=== PATIENT | female | born 1960 | race Hispanic/Latino ===

== ENCOUNTER → 2019-09-27 | Outpatient (CLI) | payer OTHER | END | disposition home or self-care (01) | LOC: OIH 13:31 | PROVIDERS: ATTEND Internal Medicine Cardiovascular Disease | DX: Z13.6 Encounter for screening for cardiovascular disorders (principal) | CPT/HCPCS: 75571 ==

== ENCOUNTER 2021-10-01 12:30 | Emergency (ER) | payer MEDICARE, OTHER ==
[~2021-10-01] VITALS: Ht 152.4 cm; Wt 137.0 kg
[2021-10-01 13:15] LABS: BASOPHILS % (AUTO) 0.5 % (0.0-5.0); EOSINOPHILS % (AUTO) 2.3 % (0.0-8.0); HEMATOCRIT 32.8 % (36-48); LYMPHOCYTES % (AUTO) 27.7 % (21.0-51.0); MEAN CORPUSCULAR HEMOGLOBIN 27.2 pg (27.0-33.0); MEAN CORPUSCULAR HGB CONC 31.4 g/dL (32.0-36.0); MEAN CORPUSCULAR VOLUME 86.8 fL (79-99); MONOCYTES % (AUTO) 8.3 % (3.0-13.0); NEUTROPHILS % (AUTO) 60.5 % (40.0-77.0); PLATELET COUNT (AUTO) 279 K/uL (130-400); RED BLOOD CELL COUNT(AUTO) 3.78 MIL/uL (4.00-5.50); RED CELL DISTRIBUTION WIDTH 14.5 % (11.0-15.5); WHITE BLOOD COUNT (AUTO) 8.8 K/uL (4.8-10.8)
[2021-10-01 13:25] LABS: CREATININE 1.6 mg/dL (0.5-1.5); POTASSIUM 5.5 mmol/L (3.5-5.1)
[2021-10-01 13:30] LABS: ALBUMIN 2.7 g/dL (3.5-5.0); BILIRUBIN,TOTAL 0.4 mg/dL (0.2-1.0); TOTAL PROTEIN, SERUM 7.4 g/dL (6.0-8.3)
[2021-10-01 13:44] LABS: B-TYPE NATRIURETIC PEPTIDE 25 pg/mL (0-100)
[2021-10-01] MEDS ORDERED: ONDANSETRON 4MG INJ IVP ONE (14:00)
[2021-10-01] MEDS ORDERED: MORPHINE 4 MG SYG IV ONE (14:00)
[2021-10-01] MEDS ORDERED: FUROSEMIDE 20MG VIAL IV ONE (14:00)
[2021-10-01 15:59] VITALS: BP 135/60
== END 2021-10-01 16:05 | disposition home or self-care (01) ==
LOC: EDH 12:30
DX: I83.009 Varicose veins of unspecified lower extremity with ulcer of unspecified site (principal); E88.09 Other disorders of plasma-protein metabolism, not elsewhere classified; I10 Essential (primary) hypertension; E11.9 Type 2 diabetes mellitus without complications; E78.00 Pure hypercholesterolemia, unspecified; Z88.8 Allergy status to other drugs, medicaments and biological substances
CPT/HCPCS: 36415; 71045; 80053; 83880; 84484; 85025; 93005; 93970; 96374; 99285; J1940; J2270; J2405

== ENCOUNTER → 2022-01-25 | Outpatient (CLI) | payer OTHER ==
[~2022-01-25] MED LIST: CEFA500C3 PO; CETI1TAB PO; FAMO20TA8 PO; FURO40TA5 PO; INSLAN SQ; INSU200I SQ; LIDOCAINE HCL 4% LTA SOL 4 ML VIAL TP ONE; METF-446 PO; OLME40TA18 PO
== END | disposition home or self-care (01) ==
LOC: WHH 09:30
PROVIDERS: ATTEND Family Medicine
DX: E11.622 Type 2 diabetes mellitus with other skin ulcer (principal); L97.812 Non-pressure chronic ulcer of other part of right lower leg with fat layer exposed; L97.822 Non-pressure chronic ulcer of other part of left lower leg with fat layer exposed; I87.8 Other specified disorders of veins; S81.801A Unspecified open wound, right lower leg, initial encounter; S81.802A Unspecified open wound, left lower leg, initial encounter; R60.9 Edema, unspecified; E78.5 Hyperlipidemia, unspecified; E66.01 Morbid (severe) obesity due to excess calories; J44.9 Chronic obstructive pulmonary disease, unspecified; F41.9 Anxiety disorder, unspecified; F32.9 Major depressive disorder, single episode, unspecified; Z68.44 Body mass index [BMI] 60.0-69.9, adult; Z96.651 Presence of right artificial knee joint; Z79.84 Long term (current) use of oral hypoglycemic drugs; Z79.4 Long term (current) use of insulin; Z79.899 Other long term (current) drug therapy; X58.XXXA Exposure to other specified factors, initial encounter; Y93.89 Activity, other specified; Y92.89 Other specified places as the place of occurrence of the external cause; Y99.8 Other external cause status
CPT/HCPCS: 11042; 11045; 29580; A4450; A6456

== ENCOUNTER 2022-06-12 19:23 | Emergency (ER) | payer OTHER ==
[~2022-06-12] VITALS: Ht 149.9 cm; Wt 149.9 kg
[~2022-06-12 19:23] MED LIST changes: -LIDOCAINE HCL 4% LTA SOL 4 ML VIAL TP ONE
[2022-06-12 19:29] VITALS: BP 137/63
[2022-06-12] MEDS ORDERED: DIAZEPAM 5 MG TABLET PO ONE (20:30)
[2022-06-12] MEDS ORDERED: HYDROCODONE/ACETAMINOPHEN 5/325 MG TAB PO ONE (20:30)
[2022-06-12] MEDS ORDERED: KETOROLAC 60 MG VIAL (30MG/ML) IM ONE (20:30)
[2022-06-12] MEDS ORDERED: NAPR-1180 PO (20:31)
[2022-06-12] MEDS ORDERED: DIAZ5TAB PO (20:31)
== END 2022-06-12 21:02 | disposition home or self-care (01) ==
LOC: EDH 19:23
DX: G24.3 Spasmodic torticollis (principal); E11.9 Type 2 diabetes mellitus without complications; I10 Essential (primary) hypertension; E78.00 Pure hypercholesterolemia, unspecified; L03.90 Cellulitis, unspecified; Z79.84 Long term (current) use of oral hypoglycemic drugs; Z79.899 Other long term (current) drug therapy; Z88.8 Allergy status to other drugs, medicaments and biological substances
CPT/HCPCS: 99283; 96372; J1885

== ENCOUNTER 2022-12-18 04:15 | Emergency (ER) | payer OTHER ==
[~2022-12-18] VITALS: Ht 149.9 cm; Wt 127.0 kg
[~2022-12-18 04:15] MED LIST changes: +DIAZ5TAB PO; +NAPR-1180 PO
[2022-12-18] MEDS ORDERED: HYDROCODONE/ACETAMINOPHEN 5/325 MG TAB PO ONE (06:00)
[2022-12-18] MEDS ORDERED: KETOROLAC 30MG VIAL (30MG/ML) IM ONE (06:00)
[2022-12-18] MEDS ORDERED: DIAZEPAM 5 MG TABLET PO ONE (06:00)
[2022-12-18 07:15] VITALS: BP 145/58
[2022-12-18] MEDS ORDERED: ACET-2079 PO (11:23)
== END 2022-12-18 11:35 | disposition home or self-care (01) ==
LOC: EDH 04:15
DX: R51.9 Headache, unspecified (principal); E11.22 Type 2 diabetes mellitus with diabetic chronic kidney disease; I12.9 Hypertensive chronic kidney disease with stage 1 through stage 4 chronic kidney disease, or unspecified chronic kidney disease; N18.9 Chronic kidney disease, unspecified; E78.00 Pure hypercholesterolemia, unspecified; J44.9 Chronic obstructive pulmonary disease, unspecified; Z88.8 Allergy status to other drugs, medicaments and biological substances; Z79.899 Other long term (current) drug therapy; Z90.49 Acquired absence of other specified parts of digestive tract
CPT/HCPCS: 99285; 70450; 96372; J1885

== ENCOUNTER 2023-10-25 08:09 | Day surgery (SDC) | payer OTHER ==
[~2023-10-25] VITALS: Ht 149.9 cm; Wt 115.7 kg
[2023-10-25] VITALS (11 sets, daily range): BP systolic 80–121; BP diastolic 32–51; PULSE 47–58; RESP 12–18
[~2023-10-25 08:09] MED LIST changes: +APIX2.5T PO; +ATOR10 PO; -CEFA500C3 PO; +CETI10TA87 PO; -CETI1TAB PO; -DIAZ5TAB PO; +DILT300C53 PO; -FAMO20TA8 PO; +FLUT15.845 NS; -FURO40TA5 PO; +GABAPENTIN PO; +HYDR-3830 PO; -INSLAN SQ; +INSU100I3 SQ; -INSU200I SQ; +INSU3INS3 SQ; -METF-446 PO; +METO-408 PO; +MIDO5TAB4 PO; +MULT-1192 PO; -NAPR-1180 PO; -OLME40TA18 PO; +PRAM0.129 PO; +SEVE800T50 PO; +TRAM50TA4 PO; +TRAZ-185 PO
[2023-10-25] MEDS: 0.9%NACL 1000ML 1,000 ML IV ONE (10:19)
[2023-10-25] MEDS ORDERED: PROPOFOL 10 MG/ML 20ML VIAL IV ONE (12:54)
== END 2023-10-25 14:40 | disposition home or self-care (01) ==
LOC: DAH 08:09 → ENDO 08:09
PROVIDERS: ATTEND Internal Medicine
DX: R12 Heartburn (principal); K92.1 Melena; D64.9 Anemia, unspecified; E66.01 Morbid (severe) obesity due to excess calories; E11.22 Type 2 diabetes mellitus with diabetic chronic kidney disease; I12.0 Hypertensive chronic kidney disease with stage 5 chronic kidney disease or end stage renal disease; N18.6 End stage renal disease; M19.90 Unspecified osteoarthritis, unspecified site; F41.9 Anxiety disorder, unspecified; E78.5 Hyperlipidemia, unspecified; Z79.01 Long term (current) use of anticoagulants; Z86.718 Personal history of other venous thrombosis and embolism; Z90.49 Acquired absence of other specified parts of digestive tract; Z98.49 Cataract extraction status, unspecified eye; Z98.891 History of uterine scar from previous surgery; Z98.890 Other specified postprocedural states; Z68.43 Body mass index [BMI] 50.0-59.9, adult
CPT/HCPCS: 82948; 43239; J7030 ×2; J2704; A4620; A4215; A4223; A4657; A7002; A4222; A4221; A4663; A4606; J3490

== ENCOUNTER 2023-11-15 12:05 | Day surgery (SDC) | payer OTHER ==
[2023-11-11 11:43] VITALS: BP 132/52; PULSE 60; RESP 16
[2023-11-11 11:59] LABS: HEMATOCRIT 38.6 % (36-48); MEAN CORPUSCULAR HEMOGLOBIN 31.6 pg (27.0-33.0); MEAN CORPUSCULAR HGB CONC 30.1 g/dL (32.0-36.0); MEAN CORPUSCULAR VOLUME 105.2 fL (79-99); PLATELET COUNT (AUTO) 179 K/uL (130-400); RED BLOOD CELL COUNT(AUTO) 3.67 MIL/uL (4.00-5.50); RED CELL DISTRIBUTION WIDTH 15.7 % (11.0-15.5)
[2023-11-11 12:12] LABS: INR <= 0.93 (0.85-1.15); PROTHROMBIN TIME 10.9 SEC (9.6-11.6)
[2023-11-11 12:13] LABS: PARTIAL THROMBOPLASTIN TIME 32.3 SEC (26.3-35.5)
[2023-11-11 12:30] LABS: CREATININE 4.4 mg/dL (0.5-1.0); POTASSIUM 4.7 mmol/L (3.5-5.1)
[~2023-11-15] VITALS: Ht 149.9 cm; Wt 115.7 kg
[2023-11-15] VITALS (17 sets, daily range): BP systolic 110–124; BP diastolic 43–55; PULSE 58–92; RESP 15–22; O2SAT 99
[~2023-11-15 12:05] MED LIST changes: +ACET-66 PO; -APIX2.5T PO; +FERR-72 PO; +FOLI0.8T41 PO; +GABA300C PO; -GABAPENTIN PO; -INSU3INS3 SQ; -METO-408 PO; +METO25TA6 PO; -MULT-1192 PO; +PANT40TA54 PO; -SEVE800T50 PO; +SEVE800T7 PO
[2023-11-15] MEDS ORDERED: 0.9% NACL 500ML IV.SOLN 500 ML IV ONE (13:02)
[2023-11-15 13:48] LABS: CREATININE 3.6 mg/dL (0.5-1.0); POTASSIUM 4.8 mmol/L (3.5-5.1)
[2023-11-15] MEDS ORDERED: VASOPRESSIN 20 UNITS/ML 1ML VIAL ONE (13:49)
[2023-11-15] MEDS ORDERED: MIDAZOLAM HCL 1 MG/ML 2ML VIAL ONE (16:35)
[2023-11-15] MEDS ORDERED: ROCURONIUM BROMIDE 10MG/1ML 5ML VL ONE (16:35)
[2023-11-15] MEDS ORDERED: LIDOCAINE PF 100MG/5ML (2%) SYRINGE 5ML ONE (16:35)
[2023-11-15] MEDS ORDERED: PROPOFOL 10 MG/ML 20ML VIAL IV ONE (16:35)
[2023-11-15] MEDS ORDERED: FENTANYL CITRATE PF 50 MCG/1 ML 2ML VIAL ONE (16:36)
[2023-11-15] MEDS: CEFAZOLIN SODIUM 2 GM VIAL ONE (16:45)
[2023-11-15] MEDS ORDERED: GLYCOPYRROLATE 0.2 MG/ML 5 ML VIAL ONE ×2 (16:54→17:46)
[2023-11-15] MEDS ORDERED: EPHEDRINE SULFATE 50 MG/ML AMPULE ONE (16:58)
[2023-11-15] MEDS ORDERED: PROTAMINE SULFATE 10 MG/ML 5 ML VIAL ONE (17:36)
[2023-11-15] MEDS: BUPIVACAINE/PF 0.5% 30ML VIAL ONE (17:45)
[2023-11-15] MEDS: LIDOCAINE HCL 1% 20 ML VIAL ONE (17:45)
[2023-11-15] MEDS ORDERED: NEOSTIGMINE METHYLSULFATE 1MG/ML IV ONE (17:46)
[2023-11-15] MEDS ORDERED: SUGAMMADEX SODIUM 200 MG/2 ML VIAL IV ONE (17:49)
[2023-11-15] MEDS ORDERED: IPRATROPIUM 0.5 MG/2.5 ML INH IH ONE (18:31)
[2023-11-15] MEDS: IPRATROPIUM/ALBUTEROL SULFATE 3 ML SOLUTION IH ONE (18:36)
== END 2023-11-15 19:00 | disposition home or self-care, planned readmission (81) ==
LOC: DAH 12:05
PROVIDERS: ATTEND Thoracic Surgery (Cardiothoracic Vascular Surgery)
DX: I12.0 Hypertensive chronic kidney disease with stage 5 chronic kidney disease or end stage renal disease (principal); E11.22 Type 2 diabetes mellitus with diabetic chronic kidney disease; N18.6 End stage renal disease; E78.5 Hyperlipidemia, unspecified; Z98.41 Cataract extraction status, right eye; Z98.42 Cataract extraction status, left eye; Z88.8 Allergy status to other drugs, medicaments and biological substances; Z82.49 Family history of ischemic heart disease and other diseases of the circulatory system; Z83.3 Family history of diabetes mellitus; Z83.79 Family history of other diseases of the digestive system; Z82.5 Family history of asthma and other chronic lower respiratory diseases; Z80.9 Family history of malignant neoplasm, unspecified; Z79.4 Long term (current) use of insulin; Z79.899 Other long term (current) drug therapy; Z79.84 Long term (current) use of oral hypoglycemic drugs; Z90.49 Acquired absence of other specified parts of digestive tract; Z98.891 History of uterine scar from previous surgery; Z98.890 Other specified postprocedural states
CPT/HCPCS: 80048 ×2; 85027; 85610; 85730; 86850; 86900; 86901; 36415 ×2; 71045; 93005; 36821; 82948; 94640; 94664; A6260; A4663; A6207; J7030; A4452; J7040; J3010; J3490 ×4; J2001; J2720; J2250; J2704; J0665; J1644; J0690; A4649 ×2; C1713 ×2; A4930 ×2; A4215; A4657; A4213; A4222; A4221; A4216; A4223 ×2; J2710; G0168

== ENCOUNTER 2024-02-21 08:05 | Day surgery (SDC) | payer OTHER ==
[2024-02-20 16:09] VITALS: BP 119/60; PULSE 85; RESP 15
[2024-02-20 16:18] LABS: HEMATOCRIT 37.5 % (36-48); MEAN CORPUSCULAR HEMOGLOBIN 31.6 pg (27.0-33.0); MEAN CORPUSCULAR HGB CONC 32.3 g/dL (32.0-36.0); MEAN CORPUSCULAR VOLUME 97.9 fL (79-99); RED BLOOD CELL COUNT(AUTO) 3.83 MIL/uL (4.00-5.50); RED CELL DISTRIBUTION WIDTH 14.6 % (11.0-15.5); WHITE BLOOD COUNT (AUTO) 7.8 K/uL (4.8-10.8)
[2024-02-20 16:33] LABS: INR 0.98 (0.85-1.15); PROTHROMBIN TIME 10.6 SEC (9.6-11.6)
[2024-02-20 16:52] LABS: CREATININE 2.9 mg/dL (0.5-1.0); POTASSIUM 3.4 mmol/L (3.5-5.1)
[2024-02-21] VITALS (19 sets, daily range): BP systolic 116–151; BP diastolic 47–66; PULSE 72–82; RESP 13–20
[~2024-02-21] VITALS: Ht 149.9 cm; Wt 112.5 kg
[~2024-02-21 08:05] MED LIST changes: -DILT300C53 PO; +SEMA1PEN3 SQ
[2024-02-21 09:39] LABS: CREATININE 4.3 mg/dL (0.5-1.0); POTASSIUM 4.7 mmol/L (3.5-5.1)
[2024-02-21] MEDS: CLINDAMYCIN IVPB 600MG/50ML 50 ML IV ONE (10:14)
[2024-02-21] MEDS: ceFAZolin SODIUM 2 GM VIAL ONE (10:14)
[2024-02-21] MEDS: 0.9% NACL 500ML IV.SOLN 500 ML IV ONE (10:14)
[2024-02-21] MEDS ORDERED: LIDOCAINE HCL 1% 20 ML VIAL ONE (11:00)
[2024-02-21] MEDS ORDERED: BUPIvacaine/PF 0.5% 30ML VIAL ONE (11:00)
[2024-02-21] MEDS ORDERED: PROPOFOL 10 MG/ML 20ML VIAL IV ONE ×2 (11:36→13:02)
[2024-02-21] MEDS ORDERED: LIDOCAINE PF 100MG/5ML (2%) SYRINGE 5ML ONE (11:36)
[2024-02-21] MEDS ORDERED: ROCURONIUM BROMIDE 10MG/1ML 5ML VL ONE ×2 (11:36→13:03)
[2024-02-21] MEDS: ceFAZolin SODIUM 2 GM VIAL IVPB ONE (12:00)
[2024-02-21] MEDS ORDERED: ceFAZolin SODIUM 1 GM VIAL ONE (12:05)
[2024-02-21] MEDS: acetaMINOPHEN 1,000 MG/100 ML VIAL IV ONE (16:00)
[2024-02-21] MEDS: SUGAMMADEX SODIUM 200 MG/2 ML VIAL IV ONE (16:00)
== END 2024-02-21 16:50 | disposition home or self-care (01) ==
LOC: DAH 08:05
PROVIDERS: ATTEND Thoracic Surgery (Cardiothoracic Vascular Surgery)
DX: I77.0 Arteriovenous fistula, acquired (principal); I12.0 Hypertensive chronic kidney disease with stage 5 chronic kidney disease or end stage renal disease; E11.22 Type 2 diabetes mellitus with diabetic chronic kidney disease; N18.6 End stage renal disease; E78.5 Hyperlipidemia, unspecified; Z79.4 Long term (current) use of insulin; Z98.42 Cataract extraction status, left eye; Z98.41 Cataract extraction status, right eye; Z88.8 Allergy status to other drugs, medicaments and biological substances; Z79.899 Other long term (current) drug therapy
CPT/HCPCS: 80048 ×2; 85027; 85610; 85730; 86850; 86900; 86901; 36415 ×2; 71045; 93005; 36832; 82948 ×2; A6260; A4663; A6207; J7040 ×2; J7030; A4452; J0690 ×4; J3490 ×3; J2001; J2704 ×2; J0665 ×2; J1644; C9250; G0168; A4649 ×2; C1713 ×2; A4930; C1768; A4215; A4223; A4222; A4221; 93306

== ENCOUNTER → 2024-04-19 | Outpatient (CLI) | payer OTHER ==
[2024-04-19 16:31] LABS: POTASSIUM 4.1 mmol/L (3.5-5.1)
== END | disposition home or self-care (01) ==
LOC: LAB 13:38
PROVIDERS: ATTEND Internal Medicine Cardiovascular Disease
DX: I48.20 Chronic atrial fibrillation, unspecified (principal)
CPT/HCPCS: 36415; 80048

== ENCOUNTER → 2024-04-24 | Outpatient (CLI) | payer OTHER ==
[~2024-04-24] MED LIST changes: +IOHEXOL 350 MG/ML 100ML INFUS..BTL IV ONE
== END | disposition home or self-care (01) ==
LOC: RAH 08:46
PROVIDERS: ATTEND Internal Medicine Cardiovascular Disease
DX: Z53.9 Procedure and treatment not carried out, unspecified reason (principal); R07.9 Chest pain, unspecified
CPT/HCPCS: 76942; Q9967